=== PATIENT | male | born 1995 | race Caucasian/White ===

== ENCOUNTER 2017-11-10 18:18 | Day surgery (SDC) | payer SELFPAY ==
[~2017-11-10] VITALS: Ht 167.6 cm; Wt 67.8 kg
--- NOTE | 2017-11-10 18:35 | ED Abdominal Pain ---
General Chief Complaint: Abdominal/GI Problems Stated Complaint: LOWER ABD PAIN RIGHT SIDE;ARMS AND LEGS NUMB Source of Information: Patient Exam Limitations: Intoxication History of Present Illness Date Seen by Provider: Nov 10, 2017 Time Seen by Provider: 18:34 Initial Comments to ER by private vehicle with sudden onset right lower quadrant abdominal pain at 2 PM today. Shortly after the pain began he began vomiting and had diaphoresis. He's never had this before. He does report some dysuria. Timing/Duration: 4-6 Hours, Intermittent Severity/Quality: Severe Location: RLQ Radiation: No Radiation Activities at Onset: None Allergies and Home Medications Allergies Uncoded Allergies: penicillins (?) (Allergy, Unknown, 11/10/17) Patient Home Medication List Home Medication List Reviewed: Yes Review of Systems Constitutional: see HPI; No chills, No fever EENTM: No Symptoms Reported Respiratory: No Symptoms Reported Cardiovascular: No Symptoms Reported Gastrointestinal: See HPI, Abdominal Pain, Constipated; Denies Diarrhea; Nausea , Vomiting Genitourinary: See HPI, Pain Musculoskeletal: see HPI Skin: no symptoms reported Psychiatric/Neurological: No Symptoms Reported Past Nqlumgt-Pqsaos-Jfbzmb Hx Patient Social History Recent Foreign Travel: No Physical Exam Vital Signs Vital Signs - First Documented 11/10/17 18:26 Temp 99.7 Pulse 92 Resp 16 B/P (MAP) 135/61 (85) Pulse Ox 100 Capillary Refill : Height/Weight/BMI Height: '" Weight: lbs. oz. kg; BMI Method: General Appearance: WD/WN, no apparent distress HEENT: PERRL/EOMI, normal ENT inspection Respiratory: no respiratory distress, no accessory muscle use Cardiovascular: regular rate, rhythm, no murmur Gastrointestinal: normal bowel sounds, soft, tenderness (mild right lower quadrant) Extremities: normal range of motion, non-tender Neurologic/Psychiatric: alert, normal mood/affect, oriented x 3 Skin: normal color, warm/dry Progress/Results/Core Measures Results/Orders Lab Results Laboratory Tests Test 11/10/17 18:30 Range/Units White Blood Count 21.8 H 4.3-11.0 10^3/uL Red Blood Count 4.87 4.35-5.85 10^6/uL Hemoglobin 14.7 13.3-17.7 G/DL Hematocrit 42 40-54 % Mean Corpuscular Volume 85 80-99 FL Mean Corpuscular Hemoglobin 30 25-34 PG Mean Corpuscular Hemoglobin Concent 35 32-36 G/DL Red Cell Distribution Width 13.1 10.0-14.5 % Platelet Count 257 130-400 10^3/uL Mean Platelet Volume 9.8 7.4-10.4 FL Neutrophils (%) (Auto) 84 H 42-75 % Lymphocytes (%) (Auto) 6 L 12-44 % Monocytes (%) (Auto) 10 0-12 % Eosinophils (%) (Auto) 0 0-10 % Basophils (%) (Auto) 0 0-10 % Neutrophils # (Auto) 18.3 H 1.8-7.8 X 10^3 Lymphocytes # (Auto) 1.3 1.0-4.0 X 10^3 Monocytes # (Auto) 2.2 H 0.0-1.0 X 10^3 Eosinophils # (Auto) 0.1 0.0-0.3 10^3/uL Basophils # (Auto) 0.0 0.0-0.1 10^3/uL Neutrophils % (Manual) 82 % Lymphocytes % (Manual) 9 % Monocytes % (Manual) 6 % Eosinophils % (Manual) 0 % Basophils % (Manual) 0 % Band Neutrophils 3 % Blood Morphology Comment NORMAL Sodium Level 140 135-145 MMOL/L Potassium Level 3.3 L 3.6-5.0 MMOL/L Chloride Level 108 H 98-107 MMOL/L Carbon Dioxide Level 20 L 21-32 MMOL/L Anion Gap 12 5-14 MMOL/L Blood Urea Nitrogen 11 7-18 MG/DL Creatinine 0.91 0.60-1.30 MG/DL Estimat Glomerular Filtration Rate > 60 BUN/Creatinine Ratio 12 Glucose Level 103 70-105 MG/DL Calcium Level 9.9 8.5-10.1 MG/DL My Orders Orders - URSZULA MCALLISTER APRN Cbc With Automated Diff (11/10/17 18:31) Basic Metabolic Panel (11/10/17 18:31) Ua Culture If Indicated (11/10/17 18:31) Iv Heplock-Insert (Order) (11/10/17 18:31) Ct Abd/Pelvis Wo(Kidney Stone) (11/10/17 18:31) Ketorolac Injection (Toradol Injection) (11/10/17 18:45) Ns Iv 1000 Ml (Sodium Chloride 0.9%) (11/10/17 18:45) Ondansetron Injection (Zofran Injectio (11/10/17 18:45) Manual Differential (11/10/17 18:30) Ciprofloxacin Iv 400mg/200ml (Cipro Iv S (11/10/17 19:00) Metronidazole 500mg/100ml Ivpb (Flagyl 5 (11/10/17 19:00) Medications Given in ED Current Medications Medications Dose Ordered Sig/Yaya Route Start Time Stop Time Status Last Admin Dose Admin Ketorolac Tromethamine 30 mg ONCE ONCE IVP 11/10/17 18:45 11/10/17 18:46 DC 11/10/17 18:40 30 MG Ondansetron HCl 4 mg ONCE ONCE IVP 11/10/17 18:45 11/10/17 18:46 DC 11/10/17 18:40 4 MG Vital Signs/I&O 11/10/17 18:26 Temp 99.7 Pulse 92 Resp 16 B/P (MAP) 135/61 (85) Pulse Ox 100 Departure Communication (Admissions) Time/Spoke to Admitting Phy: 19:[address] Gould. Admitted patient , Cipro Flagyl Zofran and fentanyl tentative plan for laparoscopic appendectomy as soon as possible in the morning. Impression Primary Impression: Appendicitis Disposition: 09 ADMITTED INPATIENT Condition: Stable Admissions Decision to Admit Reason: Admit from ER (General) Decision to Admit/Date: Nov 10, 2017 Time/Decision to Admit Time: 19:03 Departure-Patient Inst. Referrals: NO,LOCAL PHYSICIAN (PCP) Primary Care Physician URSZULA MCALLISTER APRN Nov 10, 2017 18:35
[2017-11-10 18:37] LABS: BASOPHILS % (AUTO) 0 % (0-10); EOSINOPHILS # (AUTO) 0.1 10^3/uL (0.0-0.3); EOSINOPHILS % (AUTO) 0 % (0-10); HEMATOCRIT 42 % (40-54); HEMOGLOBIN 14.7 G/DL (13.3-17.7); LYMPHOCYTES # (AUTO) 1.3 X 10^3 (1.0-4.0); LYMPHOCYTES % (AUTO) 6 % (12-44); MEAN CORPUSCULAR HEMOGLOBIN 30 PG (25-34); MEAN CORPUSCULAR HGB CONC 35 G/DL (32-36); MEAN CORPUSCULAR VOLUME 85 FL (80-99); MEAN PLATELET VOLUME 9.8 FL (7.4-10.4); MONOCYTES # (AUTO) 2.2 X 10^3 (0.0-1.0); MONOCYTES % (AUTO) 10 % (0-12); NEUTROPHILS # (AUTO) 18.3 X 10^3 (1.8-7.8); NEUTROPHILS % (AUTO) 84 % (42-75); PLATELET COUNT 257 10^3/uL (130-400); RED BLOOD COUNT 4.87 10^6/uL (4.35-5.85); RED CELL DISTRIBUTION WIDTH 13.1 % (10.0-14.5); WHITE BLOOD COUNT 21.8 10^3/uL (4.3-11.0)
[2017-11-10] MEDS ORDERED: KETOROLAC 30 MG/ML VIAL IVP ONE (18:45)
[2017-11-10] MEDS ORDERED: ONDANSETRON 4 MG/2 ML (SDV) Z0FRAN IVP ONE (18:45)
[2017-11-10] MEDS ORDERED: NS IV 1000 ML 1,000 ML IV SCH (18:45)
[2017-11-10 18:55] LABS: BUN/CREATININE RATIO 12; CALCIUM 9.9 MG/DL (8.5-10.1); CARBON DIOXIDE 20 MMOL/L (21-32); CHLORIDE 108 MMOL/L (98-107); CREATININE SERUM 0.91 MG/DL (0.60-1.30); GFR ESTIMATED > 60; GLUCOSE 103 MG/DL (70-105); POTASSIUM 3.3 MMOL/L (3.6-5.0); SODIUM 140 MMOL/L (135-145)
[2017-11-10 18:58] LABS: BAND NEUTROPHILS 3 %; BASOPHILS % (MANUAL) 0 %; EOSINOPHILS % (MANUAL) 0 %; LYMPHOCYTES % (MANUAL) 9 %; MONOCYTES % (MANUAL) 6 %; NEUTROPHILS % (MANUAL) 82 %; RBC MORPH NORMAL
[2017-11-10] MEDS ORDERED: metroNIDAZOLE 500MG/100ML IVPB 100 ML IV ONE (19:00)
[2017-11-10] MEDS ORDERED: CIPROFLOXACIN IV 400MG/200ML 200 ML IV ONE (19:00)
--- NOTE | 2017-11-10 19:05 | Diagnostic Imaging Report ---
PROCEDURE: CT urinary tract, rule out kidney stone. TECHNIQUE: Multiple contiguous axial images were obtained through the abdomen and pelvis without the use of intravenous contrast. INDICATION: 22-year-old male presents with right lower quadrant pain with dysuria. COMPARISON: None. FINDINGS: Lung bases are clear. Cardiac contour is normal. Liver shows uniform attenuation. There is no intraparenchymal mass or ductal dilatation. Gallbladder shows no evidence of radiopaque stones, sludge, wall thickening or pericholecystic fluid. Spleen and GE junction are normal. Stomach and duodenal sweep are normal. Pancreas shows sharp margins. Adrenals are normal. Kidneys appear normal in size, position and contour. There is mild bilateral nephrocalcinosis. Some punctate discrete calculi are also seen bilaterally. There is no evidence of hydronephrosis or hydroureter. Both ureters are seen intermittently through their course with no evidence of ureteral calculus. Bladder is nondistended. Nonopacified loops of small bowel are grossly unremarkable. Few shoddy benign-appearing mesenteric nodes are seen but no evidence of adenopathy or adenitis. The appendix is prominent and shows some minimal stranding. The appendix measures approximately 11 mm in diameter. Some pericecal stranding is also noted but no discrete phlegmon or abscess identified. Some reactive prominent cecal nodes are also seen. Large bowel contains fecal material and gas. There is trace free pelvic fluid. IMPRESSION: 1. Prominent appendix with some periappendiceal stranding and regional lymphadenopathy as well as a trace amount of free pelvic fluid is consistent with acute appendicitis. 2. Bilateral nephrocalcinosis with punctate discrete nonobstructing renal calculi with no evidence of obstructive uropathy. 3. No evidence of cholelithiasis or cholecystitis. Additional nonemergent findings as described above. Dictated by: Dictated on workstation # [id number]
[2017-11-10 19:48] VITALS: BP 135/56
--- NOTE | 2017-11-10 20:10 | Progress Note-Pre Operative ---
Pre-Operative Progress Note H&P Reviewed The H&P was reviewed, patient examined and no changes noted. Date Seen by Provider: Nov 10, 2017 Time Seen by Provider: 20:00 Date H&P Reviewed: Nov 10, 2017 Time H&P Reviewed: 20:00 Pre-Operative Diagnosis: acute appendicitis CHARLEEN ALMARAZ MD Nov 10, 2017 8:10 pm
[2017-11-10] MEDS ORDERED: ONDANSETRON 4 MG/2 ML (SDV) Z0FRAN IV PRN (20:15)
[2017-11-10] MEDS ORDERED: CATHETER FLUSH 10 ML SYR IV PRN (20:15)
[2017-11-10] MEDS ORDERED: fentaNYL INJECTION 100 MCG/2 ML AMP IV PRN (20:15)
--- NOTE | 2017-11-10 20:37 | HISTORY AND PHYSICAL ---
DATE OF SERVICE: The patient is a 22-year-old male who presented to the Emergency Department with a sudden onset of pain in the right lower abdominal quadrant. He reports that this started around 2 p.m. today, an episode of that. He states he does not report any other symptoms. He does not report any previous upper respiratory infection. He also does not report being on antibiotics for another reason in recent weeks. He reports that this type of discomfort is a new issue. Upon examination, he has pain in the right lower abdominal quadrant at McBurney's point. There is voluntary guarding, no rebound. A CT scan was performed, which did show a dilated appendix at 11 mm with periappendiceal fat stranding consistent with an acute appendicitis. PAST MEDICAL HISTORY: None. PAST SURGICAL HISTORY: None. ALLERGIES: None. MEDICATIONS: None. SOCIAL HISTORY: Negative smoke, social alcohol. FAMILY HISTORY: Noncontributory. REVIEW OF SYSTEMS: A well-nourished male currently in no acute distress. He is not experiencing any shortness of breath or difficulty breathing. No chest pain, palpitations, diaphoresis. Nausea with an episode of vomiting of small amounts of undigested food as well as bilious components. No hematemesis or coffee ground emesis. No diarrhea, constipation, no red blood per rectum, no dark tarry stools. Mild episode of fever at home. No recent inadvertent weight loss. All other review of systems negative. PHYSICAL EXAMINATION: VITAL SIGNS: Temperature 99.7, blood pressure 135/61, pulse 92, respirations 16, pulse ox 100% on room air. CHEST: Clear. Good breath sounds bilaterally. HEART: Regular, no murmurs. EXTREMITIES: No lower extremity edema, negative Homans sign. HEENT: No scleral icterus. NECK: No cervical lymphadenopathy. ABDOMEN: Soft, nondistended. There is pain in the right lower abdominal quadrant at McBurney's point with voluntary guarding, no rebound. SKIN: Warm, dry. LABORATORY DATA: WBC 21.8, hemoglobin 14.7, hematocrit 42, platelets 257. BUN 11 and creatinine 0.91. ASSESSMENT AND PLAN: A 22-year-old male with acute appendicitis. The natural history of this surgical issue was explained to the patient including the risks and benefits of surgery. He is in full understanding of this and would like to proceed with a diagnostic laparoscopy and laparoscopic appendectomy, which we will proceed with on this admission. Job ID: [id number] DocumentID: [id number] Dictated Date: 11/10/2017 20:09:59 Community Engagement Representative Date: 11/10/2017 20:36:38 Dictated By: CHARLEEN ALMARAZ MD
[2017-11-10] MEDS: NS W/KCL 40 MEQ/L 1,000 ML IV SCH (22:00)
[2017-11-11 00:26] VITALS: BP 119/60
[2017-11-11 04:05] VITALS: BP 112/65
[2017-11-11 05:53] LABS: BUN/CREATININE RATIO 13; CALCIUM 8.7 MG/DL (8.5-10.1); CARBON DIOXIDE 20 MMOL/L (21-32); CHLORIDE 111 MMOL/L (98-107); CREATININE SERUM 0.79 MG/DL (0.60-1.30); GFR ESTIMATED > 60; GLUCOSE 98 MG/DL (70-105); POTASSIUM 4.1 MMOL/L (3.6-5.0); SODIUM 139 MMOL/L (135-145)
[2017-11-11] MEDS: metroNIDAZOLE 500MG/100ML IVPB 100 ML IV SCH ×2 (06:15→15:05)
[2017-11-11] MEDS: NS W/KCL 40 MEQ/L 1,000 ML IV SCH ×2 (06:15→08:10)
[2017-11-11] MEDS ORDERED: LACTATED RINGERS 1,000 ML IV PRN (07:47)
[2017-11-11 08:25] VITALS: BP 111/57
[2017-11-11] MEDS ORDERED: CIPROFLOXACIN IV 400MG/200ML 200 ML IV SCH (09:00)
[2017-11-11] MEDS ORDERED: BUP/EPI 0.5% 1:200,000 (SENSORCAINE) 30 ML VIAL ONE (09:27)
[2017-11-11] MEDS ORDERED: ROCURONIUM 10 MG/ML 5 ML SYRINGE IV ONE (11:23)
[2017-11-11] MEDS ORDERED: proPOfol 200 MG/20 ML (DIPRIVAN) VIAL IV ONE (11:23)
[2017-11-11] MEDS ORDERED: LIDOCAINE PF 2% 5 ML (XYLOCAINE) VIAL ONE (11:23)
[2017-11-11] MEDS ORDERED: MIDAZOLAM 2 MG/2 ML (VERSED) VIAL ONE (11:23)
[2017-11-11] MEDS ORDERED: fentaNYL INJECTION 100 MCG/2 ML AMP ONE (11:23)
[2017-11-11] MEDS ORDERED: ONDANSETRON 4 MG/2 ML (SDV) Z0FRAN ONE (11:24)
[2017-11-11] MEDS ORDERED: SEVOFLURANE (ULTANE) 15 ML INHAL SOLN ONE ×4 (11:24→12:33)
[2017-11-11] MEDS ORDERED: DEXAMETHASONE 10 MG/ML (DECADRON) 1 ML VIAL ONE (11:24)
[2017-11-11 11:45] VITALS: BP 102/59
[2017-11-11] MEDS ORDERED: NS (IVPB) 50 ML ONE (11:46)
[2017-11-11] MEDS ORDERED: ceFAZolin 1,000 MG (ANCEF) VIAL ONE (11:46)
--- NOTE | 2017-11-11 12:41 | Progress Note-Post Operative ---
Post-Operative Progess Note Surgeon (s)/Workday Director (s) Surgeon CHARLEEN ALMARAZ MD Workday Director: none Pre-Operative Diagnosis acute appendicitis Post-Operative Diagnosis same Procedure & Operative Findings Date of Procedure 11/11/17 Procedure Performed/Findings laparoscopic appendectomy Anesthesia Type GET Estimated Blood Loss Estimated blood loss (mL): minimal Specimens/Packing Specimens Removed appendix CHARLEEN ALMARAZ MD Nov 11, 2017 12:41 pm
[2017-11-11] MEDS ORDERED: LACTATED RINGERS 1,000 ML IV SCH (12:45)
[2017-11-11] MEDS ORDERED: HYDR-34 PO (12:47)
--- NOTE | 2017-11-11 12:48 | Discharge Inst-Surgical ---
D/C Lap Instructions-RUFINA New, Converted, or Re-Newed RX: RX on Chart Follow Up Appt in 2 weeks Activity as tolerated No driving for 24 hours No [address] while on pain medications Incentive Spirometry use every 2 hours while awake Regular Diet Symptoms to Report: Fever over 101 degree F, Nausea/Vomiting Infection Signs and Symptoms to report: Increased redness, Foul odor of wound, Increased drainage Bathing instructions: May shower Operative Area Clean/Dry; Keep incision clean/dry If any problems/questions: Contact your physician or go to Emergency Room CHARLEEN ALMARAZ MD Nov 11, 2017 12:48 pm
[2017-11-11] MEDS ORDERED: LACTATED RINGERS 1,000 ML IV ONE (12:57)
[2017-11-11] MEDS ORDERED: MEPERIDINE (DEMEROL) INJ 50 MG/ML IVP PRN (13:00)
[2017-11-11] MEDS ORDERED: ONDANSETRON 4 MG/2 ML (SDV) Z0FRAN IVP PRN (13:00)
[2017-11-11] MEDS: morphine INJ 10 MG/ML 1ML (SYR OR VIAL) IVP PRN ×2 (13:05→13:10)
--- NOTE | 2017-11-11 13:41 | Anesthesia-General Post-Op ---
General Patient Condition Mental Status/LOC: Same as Preop Cardiovascular: Satisfactory Nausea/Vomiting: Absent Respiratory: Satisfactory Pain: Controlled Complications: Absent Post Op Complications Complications None Follow Up Care/Instructions Patient Instructions None needed. Anesthesia/Patient Condition Patient Condition Patient is doing well, no complaints, stable vital signs, no apparent adverse anesthesia problems. No complications reported per nursing. SOFIA JEFFRIES CRNA Nov 11, 2017 13:40
[2017-11-11 13:48] VITALS: BP 122/78
[2017-11-11] MEDS ORDERED: HYDROcodone/APAP 7.5 MG/325 MG (LORTAB, LORCET PLUS) TABLET PO PRN (15:30)
[2017-11-11 15:50] VITALS: BP 124/67
--- NOTE | 2017-11-11 22:19 | OPERATIVE REPORT ---
DATE OF SERVICE: 11/11/2017 PREOPERATIVE DIAGNOSIS: Acute appendicitis. POSTOPERATIVE DIAGNOSIS: Acute appendicitis. PROCEDURE: Laparoscopic appendectomy. SURGEON: Charleen Almaraz MD ANESTHESIA: General endotracheal. ESTIMATED BLOOD LOSS: Minimal. FINDINGS: Inflamed appendix with no perforation. Small bowel, omentum as well as colon were normal. DISPOSITION: The patient tolerated the procedure well. INDICATIONS: The patient is a 22-year-old male who presented to the Emergency Department with sudden onset of pain in the right lower abdominal quadrant. He reported that the pain had started around 2 p.m. and persisted and worsened over time. He also stated that he did develop nausea and one episode of vomiting. He reports that this is a new issue and he has not had these type of symptoms before in the past. He also does not report any previous upper respiratory infection in recent weeks as well as no previous antibiotics. Upon examination, he was found to have pain in the right lower abdominal quadrant at McBurney's point with voluntary guarding, no rebound. A CT scan also did show a dilated appendix at 11 mm with periappendiceal fat stranding consistent with acute appendicitis. DESCRIPTION OF PROCEDURE: The patient was brought to the operating room, laid supine on the table. After adequate IV pain and sedating medications and general endotracheal intubation, the abdomen was prepped and draped in standard surgical fashion. A 0.5% Marcaine with epinephrine was used to anesthetize the overlying skin in the left upper abdominal quadrant and a small transverse skin incision made using a 15 blade. An 0 silk suture was applied to the medial aspect of incision for retraction and a Veress needle inserted with a low opening pressure of 0 mmHg and the abdomen was then insufflated to 15 mmHg pressure. Veress needle removed and a 5 mm Xcel trocar placed followed by a 5 mm 45-degree angle laparoscope visualizing the peritoneal cavity. A 4-quadrant abdominal exploration was performed. There was an inflamed appendix; however, no perforation identified. The remainder of the omentum, small bowel and colon appeared normal. Under direct visualization, we then proceed to place a supraumbilical 10 mm port after the skin and peritoneal lining were anesthetized using 0.5% Marcaine with epinephrine and a transverse skin incision made using a 15 blade. In a similar manner, a suprapubic 5 mm port was placed. The patient was then placed in Trendelenburg position as well as plane right side up, left side down. The appendix was then retracted towards the anterior abdominal wall. The mesentery was thin and we were able to excise the appendix at the cecal base as well as the mesentery with one 45 mm staple load with a 2.5 mm thickness load with visualization of good hemostasis. The appendix was removed through the 10 mm port site using an EndoCatch bag. The 10 mm port site fascia and peritoneum were then closed under direct visualization using Mario-Mannie device and 0 Vicryl suture. The abdomen was desufflated and remaining ports removed. All skin incisions were closed using 4-0 Monocryl running subcuticular sutures. Wounds were then cleaned and covered with Dermabond. The patient tolerated the procedure well. We will start IV normal pain medication as well as a clear liquid diet. Once he is tolerating clears, has good pain control with oral pain medications, ambulating well, we will discharge him home. Job ID: [id number] DocumentID: [id number] Dictated Date: 11/11/2017 12:59:01 Laser Beam Cutter Date: 11/11/2017 22:19:15 Dictated By: CHARLEEN ALMARAZ MD
--- NOTE | 2017-11-12 07:08 | Anesthesia-General Post-Op ---
General Patient Condition Mental Status/LOC: Same as Preop Cardiovascular: Satisfactory Nausea/Vomiting: Absent Respiratory: Satisfactory Pain: Controlled Complications: Absent Post Op Complications Complications None Follow Up Care/Instructions Patient Instructions None needed. Anesthesia/Patient Condition Patient Condition Patient is doing well, no complaints, stable vital signs, no apparent adverse anesthesia problems. No complications reported per nursing. D/C home per [facility] – [place] Criteria: No SACHIN JOHNS CRNA Nov 12, 2017 07:08
== END 2017-11-11 16:00 | disposition home or self-care (01) ==
LOC: ER 18:21 → 4TH 19:05 → UNDOADMOB 19:05 → SDC 19:05 → 4TH 19:05 → SDC 11-11 16:00 → UNDODISOB 11-11 16:00
PROVIDERS: ATTEND Surgery
DX: K35.80 Unspecified acute appendicitis (principal)
CPT/HCPCS: 36415; 74176; 80048; 85007; 85027; 87081; 94664; 96361; 96365; 96375

== ENCOUNTER 2018-12-12 23:10 | Emergency (ER) | payer OTHER ==
[~2018-12-12] VITALS: Ht 167.6 cm; Wt 72.6 kg
[~2018-12-12 23:10] MED LIST: HYDR-34 PO
[2018-12-12] MEDS ORDERED: KETOROLAC 60 MG/2 ML VIAL IM STA (23:22)
[2018-12-12] MEDS ORDERED: ACETAMINOPHEN 500 MG TAB (TYLENOL) PO STA (23:22)
[2018-12-12] MEDS ORDERED: CEPHALEXIN 250 MG (KEFLEX) CAP PO STA (23:28)
--- NOTE | 2018-12-12 23:28 | ED Upper Extremity ---
General Chief Complaint: Upper Extremity Stated Complaint: RT HAND ROPE BURN Source: patient Exam Limitations: no limitations History of Present Illness Date Seen by Provider: Dec 12, 2018 Time Seen by Provider: 23:18 Initial Comments Here with report of broke burn to the right hand. Patient is right-hand dominant. He was participating in a [employer] roping competition and had roped a steer. The rope got loose and he tried to contain it by holding it and the rope pulled through his hands. This caused a burn to the palmar surface of the right hand on the second through fourth fingers. There are blisters noted as well as 1 open area where the callus was pulled off to the base of the fourth finger. Denies other injury. Tetanus is not up-to-date. He has not had anything for the pain. Onset: this evening (approximately an hour ago) Severity: moderate Pain/Injury Location: right hand Method of Injury: burn Modifying Factors: Worse With Movement; Improves With Other (ice pack) Allergies and Home Medications Allergies Uncoded Allergies: penicillins (?) (Allergy, Unknown, 11/10/17) Home Medications Hydrocodone Bit/Acetaminophen 1 Ea Tablet, 1-2 EACH PO Q4H Prescribed by: CHARLEEN ALMARAZ on 11/11/17 1247 Patient Home Medication List Home Medication List Reviewed: Yes Review of Systems Constitutional: No chills, No fever Respiratory: no symptoms reported Cardiovascular: no symptoms reported Skin: see HPI, change in color, lesions Past Bierahv-Cdhfrs-Xinrkf Hx Past Med/Social Hx: Reviewed Nursing Past Med/Soc Hx Patient Social History Alcohol Use: Occasionally Uses Alcohol Beverage of Choice: Beer Recreational Drug Use: No Drug of Choice: POT Type Used: Cigars Recent Hopitalizations: No Seasonal Allergies Seasonal Allergies: Yes Past Medical History Surgeries: Yes Tonsillectomy Respiratory: Yes Asthma Cardiac: No Neurological: No Genitourinary: No Gastrointestinal: No Musculoskeletal: Yes (RIB FXS) HEENT: No Cancer: No Psychosocial: No Integumentary: No Family Medical History Reviewed Nursing Family Hx Patient reports no known family medical history. No Pertinent Family Hx Physical Exam Vital Signs Vital Signs - First Documented 12/12/18 23:13 Temp 98.2 Pulse 83 Resp 20 B/P (MAP) 123/87 (99) Pulse Ox 99 O2 Delivery Room Air Capillary Refill : Height, Weight, BMI Height: 5'6.00" Weight: 149lbs. 6.0oz. 67.371034ps; 24.1 BMI Method:Stated General Appearance: WD/WN, no apparent distress Cardiovascular: regular rate, rhythm, no murmur Respiratory: lungs clear, normal breath sounds Hand: normal ROM, Right, soft tissue tenderness (has blister to the distal pad of the second finger and proximal pads of the third, fourth and fifth fingers. Abrasion noted in the webspace between the thumb and second finger. Blister has been unroofed to the base of the fourth finger exposing underlying dermis.) Neurologic/Psychiatric: alert, oriented x 3 Skin: warm/dry, other (skin findings as above) Progress/Results/Core Measures Results/Orders My Orders Orders - CANDY ARBOLEDA MD Acetaminophen Tablet (Tylenol Tablet) (12/12/18 23:22) Ketorolac Injection (Toradol Injection) (12/12/18 23:22) Dipht,Pertuss(Acell),Tet Adult (Boostrix (12/12/18 23:30) Cephalexin Capsule (Keflex Capsule) (12/12/18 23:28) Vital Signs/I&O 12/12/18 23:13 Temp 98.2 Pulse 83 Resp 20 B/P (MAP) 123/87 (99) Pulse Ox 99 O2 Delivery Room Air Progress Progress Note : Progress Note Seen and evaluated. Patient drove here. Tetanus updated. Toradol 60 mg IM, Tylenol 1 g by mouth, Keflex 500 mg by mouth ordered. Wounds cleaned and dressed by nursing. Antibiotic ointment applied to denuded areas and covered with dressing. Discharged home with return precautions. Patient verbalize understanding instructions and agreement with plan. Departure Impression Primary Impression: Abrasion or friction burn of hand without infection Disposition: HOME, SELF-CARE Condition: Stable Departure-Patient Inst. Decision time for Depature: 23:35 Referrals: NO,LOCAL PHYSICIAN (PCP/Family) Primary Care Physician Patient Instructions: Blisters, Skin Sheppard (DC) Add. Discharge Instructions: All discharge instructions reviewed with patient and/or family. Voiced understanding. Do not open blisters. You may cover open areas with antibiotic ointment and dressing twice daily. It is okay to wash your hands gently with gentle soap and water as needed. Protect hand from further injury. You may take ibuprofen 600 mg every 8 hours as needed for pain. You may take Tylenol/acetaminophen 1000 mg every 6-8 hours as needed for pain but do not take it with the prescribed pain medicine as they both have acetaminophen and them. Do not exceed 4000 mg of acetaminophen in 24 hours. Keep wound covered, clean and dry otherwise. You may use cool packs over wounds as needed for pain control but do not use this for a prolonged period time as this will actually increase your pain. Return for worse pain, increasing redness, foul-smelling drainage, red streaks up the hand or arm, fever or other concerns as needed. Scripts Hydrocodone Bit/Acetaminophen (LORTAB 7.5 MG TABLET) 1 Ea Tablet 1 EACH PO Q6H, #8 TAB 0 Refills Prov: CANDY ARBOLEDA MD 12/12/18 Cephalexin (Cephalexin) 500 Mg Tablet 500 MG PO QID, #20 TAB 0 Refills Prov: CANDY ARBOLEDA MD 12/12/18 CANDY ARBOLEDA MD Dec 12, 2018 23:28
[2018-12-12] MEDS ORDERED: TETANUS,DIPTH,PERTUSS P/F (BOOSTRIX) 0.5 ML VIAL IM ONE (23:30)
[2018-12-12] MEDS ORDERED: CEPH500T PO (23:38)
[2018-12-12] MEDS ORDERED: HYDR-34 PO (23:38)
[2018-12-12 23:42] VITALS: BP 123/87
== END 2018-12-12 23:42 | disposition home or self-care (01) ==
LOC: EDUNIT# 23:10 → ER FS 23:11
DX: T23.231A Burn of second degree of multiple right fingers (nail), not including thumb, initial encounter (principal); S60.511A Abrasion of right hand, initial encounter; T31.0 Burns involving less than 10% of body surface; Z90.89 Acquired absence of other organs; X58.XXXA Exposure to other specified factors, initial encounter
CPT/HCPCS: 90715